=== PATIENT | female | born 1980 | race Caucasian/White ===

== ENCOUNTER 2018-11-09 19:16 | Emergency (ER) | payer MEDICAID | END 2018-11-09 20:39 | disposition left against medical advice (07) | LOC: ER 19:16 | DX: R10.9 Unspecified abdominal pain (principal); Z53.21 Procedure and treatment not carried out due to patient leaving prior to being seen by health care provider ==

== ENCOUNTER 2018-11-10 19:01 | Emergency (ER) | payer MEDICAID ==
[~2018-11-10] VITALS: Ht 162.6 cm; Wt 95.5 kg
[2018-11-10 19:42] LABS: URINE HCG NEGATIVE (NEG)
[2018-11-10 19:47] LABS: CLARITY,URINE SLIGHTLY CLOUDY (Clear); COLOR,URINE YELLOW (Yellow); GLUCOSE, URINE NEGATIVE (Neg); KETONES,URINE TRACE mg/dl (Neg); LEUKOCYTE ESTERASE ,URINE NEGATIVE (Neg); NITRITES, URINE NEGATIVE (Neg); OCCULT BLOOD,URINE NEGATIVE (Neg); PROTEIN,URINE NEGATIVE (Neg); UROBILINOGEN,URINE 0.2 E.U/dL (0.2-1.0)
[2018-11-10 19:49] LABS: BASOPHILS # (AUTO) 0.1 X10'3 (0-0.2); BASOPHILS % (AUTO) 0.9 % (0-1); EOSINOPHILS # (AUTO) 0.2 X10'3 (0-0.9); EOSINOPHILS % (AUTO) 1.3 % (0-6); HEMATOCRIT 41.4 % (35.0-45.0); HEMOGLOBIN 13.5 g/dl (12.0-16.0); LYMPHOCYTES # (AUTO) 4.1 X10'3 (1.1-4.8); LYMPHOCYTES % (AUTO) 34.1 % (21-51); MEAN CORPUSCULAR HEMOGLOBIN 26.1 PG (27.0-31.0); MEAN CORPUSCULAR HGB CONC 32.6 g/dL (33.0-36.5); MEAN CORPUSCULAR VOLUME 80.1 FL (78-98); MEAN PLATELET VOLUME 8.3 FL (7.4-10.4); NEUTROPHILS # (AUTO) 6.7 X10'3 (1.8-7.7); NEUTROPHILS % (AUTO) 55.7 % (42-75); PLATELET COUNT 418 X10'3 (140-440); PROTHROMBIN TIME 9.7 SECONDS (9.0-12.0); RED BLOOD COUNT 5.17 X10'6 (4.20-5.60); RED CELL DISTRIBUTION WIDTH 16.6 % (11.5-14.5)
[2018-11-10 19:52] LABS: ALANINE AMINOTRANSFERASE 23 U/L (12-78); ALBUMIN 3.5 G/DL (3.4-5.0); ALKALINE PHOSPHATASE 61 IU/L (46-116); ANION GAP 8 (8-16); ASPARTATE AMINO TRANSFERASE 13 U/L (10-37); BILIRUBIN,TOTAL 0.1 MG/DL (0.1-1.0); BLOOD UREA NITROGEN 7 MG/DL (7-18); BUN/CREATININE RATIO 8.2 (6.6-38.0); CHLORIDE 105 MMOL/L (99-107); CREATININE 0.85 MG/DL (0.40-0.90); GLUCOSE 96 MG/DL (70-104); POTASSIUM 3.9 MMOL/L (3.5-5.1); SODIUM 141 MMOL/L (135-145); TOTAL CARBON DIOXIDE 27.8 MMOL/L (24-32); TOTAL PROTEIN 6.9 G/DL (6.4-8.2); eGFR 74 ML/MIN
[2018-11-10 19:59] LABS: UA COLLECTION TYPE CLN CATCH MIDSTREAM
[2018-11-10 20:01] LABS: BACTERIA,URINE FEW /HPF (Neg); RBC,URINE NONE SEEN /HPF (0-2); WBC,URINE 0-4 /HPF (0-4)
[2018-11-10 20:02] LABS: MUCUS STRANDS MANY /LPF (Neg); SQUAMOUS EPITHELIAL CELL,UR MANY /LPF (FEW)
[2018-11-10] MEDS ORDERED: HYDROcodone/acetaminophen 5mg/325mg tablet PO ONE (20:40)
[2018-11-10 21:59] VITALS: BP 141/85
== END 2018-11-10 22:01 | disposition home or self-care (01) ==
LOC: ER 19:02
DX: R10.32 Left lower quadrant pain (principal)
CPT/HCPCS: 36415; 74176; 80053; 81001; 81025; 85025; 85610; 99284

== ENCOUNTER 2018-12-11 23:13 | Emergency (ER) | payer MEDICAID ==
[~2018-12-11] VITALS: Ht 165.1 cm; Wt 84.0 kg
[2018-12-12 00:56] VITALS: BP 116/75
== END 2018-12-12 01:04 | disposition home or self-care (01) ==
LOC: ER 23:13
DX: O26.891 Other specified pregnancy related conditions, first trimester (principal); S52.122A Displaced fracture of head of left radius, initial encounter for closed fracture; S62.002A Unspecified fracture of navicular [scaphoid] bone of left wrist, initial encounter for closed fracture; Z3A.01 Less than 8 weeks gestation of pregnancy; W18.39XA Other fall on same level, initial encounter; Y93.89 Activity, other specified; Y92.89 Other specified places as the place of occurrence of the external cause; Y99.8 Other external cause status
CPT/HCPCS: 29105; 29125; 73080; 73110; 99283

== ENCOUNTER 2021-05-06 10:08 | Emergency (ER) | payer MEDICAID ==
[~2021-05-06] VITALS: Ht 165.1 cm; Wt 100.0 kg
[~2021-05-06 10:08] MED LIST: ACIDOPHILUS100 MG PO; DIPH-423 PO; ESOM20CA PO; IBUP-1985 PO; POLOS EACHEYE; TRIA15CR61 TP; VENL150C2 PO
[2021-05-06] MEDS ORDERED: acetaminophen 325mg tablet PO ONE (12:30)
[2021-05-06] MEDS ORDERED: aspirin 81mg tab.chew PO ONE (12:30)
[2021-05-06] MEDS ORDERED: HYDROcodone/acetaminophen 5mg/325mg tablet PO ONE (13:45)
[2021-05-06 13:56] LABS: BASOPHILS # (AUTO) 0.1 X10'3 (0-0.2); BASOPHILS % (AUTO) 0.5 % (0-1); EOSINOPHILS # (AUTO) 0.1 X10'3 (0-0.9); EOSINOPHILS % (AUTO) 0.5 % (0-6); HEMATOCRIT 41.3 % (35.0-45.0); HEMOGLOBIN 13.7 g/dl (12.0-16.0); LYMPHOCYTES # (AUTO) 7.4 X10'3 (1.1-4.8); MEAN CORPUSCULAR HEMOGLOBIN 27.8 PG (27.0-31.0); MEAN CORPUSCULAR HGB CONC 33.2 g/dL (33.0-36.5); MEAN CORPUSCULAR VOLUME 83.6 FL (78-98); MEAN PLATELET VOLUME 8.3 FL (7.4-10.4); MONOCYTES # (AUTO) 0.9 X10'3 (0-0.9); MONOCYTES % (AUTO) 5.7 % (2-12); NEUTROPHILS % (AUTO) 45.3 % (42-75); PLATELET COUNT 368 X10'3 (140-440); RED BLOOD COUNT 4.93 X10'6 (4.20-5.60); RED CELL DISTRIBUTION WIDTH 14.6 % (11.5-14.5); WHITE BLOOD COUNT 15.4 X10'3 (4.5-11.0)
[2021-05-06 14:00] LABS: ALANINE AMINOTRANSFERASE 20 U/L (12-78); ALBUMIN 3.2 G/DL (3.4-5.0); ALBUMIN/GLOBULIN RATIO 0.9 (1.1-1.5); ALKALINE PHOSPHATASE 58 IU/L (46-116); ANION GAP 8 (8-16); ASPARTATE AMINO TRANSFERASE 15 U/L (10-37); BILIRUBIN,TOTAL 0.2 MG/DL (0.1-1.0); BLOOD UREA NITROGEN 19 MG/DL (7-18); BUN/CREATININE RATIO 20.4 (6.6-38.0); CALCIUM 8.7 MG/DL (8.5-10.1); CHLORIDE 102 MMOL/L (99-107); CREATININE 0.93 MG/DL (0.40-0.90); GLUCOSE 93 MG/DL (70-104); POTASSIUM 3.4 MMOL/L (3.5-5.1); SODIUM 135 MMOL/L (135-145); TOTAL CARBON DIOXIDE 25.3 MMOL/L (24-32); TOTAL PROTEIN 6.8 G/DL (6.4-8.2); eGFR 66 ML/MIN
[2021-05-06 14:05] LABS: D-DIMER < 0.19 MG/L FEU (0-0.50); PARTIAL THROMBOPLASTIN TIME 21 SECONDS (22-32)
[2021-05-06 14:10] LABS: MAGNESIUM 2.3 MG/DL (1.5-2.4)
[2021-05-06 14:22] LABS: URINE HCG NEGATIVE (NEG)
[2021-05-06 14:34] LABS: CLARITY,URINE SLIGHTLY CLOUDY (Clear); COLOR,URINE YELLOW (Yellow); UA COLLECTION TYPE CLN CATCH MIDSTREAM
[2021-05-06 14:35] LABS: GLUCOSE, URINE NEGATIVE (Neg); KETONES,URINE NEGATIVE (Neg); LEUKOCYTE ESTERASE ,URINE TRACE (Neg); NITRITES, URINE NEGATIVE (Neg); OCCULT BLOOD,URINE NEGATIVE (Neg); PROTEIN,URINE NEGATIVE (Neg); UROBILINOGEN,URINE 0.2 E.U/dL (0.2-1.0)
[2021-05-06 14:37] LABS: BACTERIA,URINE 2+ /HPF (Neg); HYALINE CASTS 0-3 /LPF (NEGATIVE); MUCUS STRANDS NONE SEEN /LPF (Neg); RBC,URINE 0-2 /HPF (0-2); SQUAMOUS EPITHELIAL CELL,UR MODERATE /LPF (FEW)
[2021-05-06] MEDS ORDERED: FLUC150T66 PO (14:53)
[2021-05-06] MEDS ORDERED: AZIT-72 PO (14:53)
[2021-05-06 15:01] VITALS: BP 113/98
== END 2021-05-06 15:03 | disposition home or self-care (01) ==
LOC: ER 10:08
DX: J18.9 Pneumonia, unspecified organism (principal); Z20.822 Contact with and (suspected) exposure to COVID-19; R07.89 Other chest pain; R06.02 Shortness of breath; R53.1 Weakness; Z79.2 Long term (current) use of antibiotics; Z79.899 Other long term (current) drug therapy
CPT/HCPCS: 36415; 71045; 80053; 81001; 81025; 83735; 83880; 84484; 85025; 85379; 85610; 85730; 87635; 93005; 99285; C9803

== ENCOUNTER 2021-06-04 13:18 | Emergency (ER) | payer MEDICAID ==
[~2021-06-04] VITALS: Ht 165.1 cm; Wt 105.9 kg
[~2021-06-04 13:18] MED LIST changes: +FLUC150T66 PO
[2021-06-04] MEDS ORDERED: ondansetron 4mg rapidly disintigrating tab PO ONE (15:15)
[2021-06-04] MEDS ORDERED: morphine 4 MG/ML inj SYRINge IM ONE (15:15)
[2021-06-04 15:44] LABS: BASOPHILS # (AUTO) 0.1 X10'3 (0-0.2); BASOPHILS % (AUTO) 0.6 % (0-1); EOSINOPHILS # (AUTO) 0.1 X10'3 (0-0.9); EOSINOPHILS % (AUTO) 0.9 % (0-6); HEMATOCRIT 39.8 % (35.0-45.0); HEMOGLOBIN 13.3 g/dl (12.0-16.0); LYMPHOCYTES # (AUTO) 3.7 X10'3 (1.1-4.8); LYMPHOCYTES % (AUTO) 34.2 % (21-51); MEAN CORPUSCULAR HEMOGLOBIN 27.6 PG (27.0-31.0); MEAN CORPUSCULAR HGB CONC 33.4 g/dL (33.0-36.5); MEAN CORPUSCULAR VOLUME 82.8 FL (78-98); MEAN PLATELET VOLUME 8.5 FL (7.4-10.4); MONOCYTES # (AUTO) 0.7 X10'3 (0-0.9); MONOCYTES % (AUTO) 6.4 % (2-12); NEUTROPHILS # (AUTO) 6.3 X10'3 (1.8-7.7); NEUTROPHILS % (AUTO) 57.9 % (42-75); PLATELET COUNT 329 X10'3 (140-440); RED CELL DISTRIBUTION WIDTH 14.5 % (11.5-14.5); WHITE BLOOD COUNT 10.9 X10'3 (4.5-11.0)
[2021-06-04 15:57] LABS: ALANINE AMINOTRANSFERASE 18 U/L (12-78); ALBUMIN 2.9 G/DL (3.4-5.0); ALBUMIN/GLOBULIN RATIO 0.7 (1.1-1.5); ALKALINE PHOSPHATASE 55 IU/L (46-116); ANION GAP 15 (8-16); ASPARTATE AMINO TRANSFERASE 19 U/L (10-37); BILIRUBIN,TOTAL 0.2 MG/DL (0.1-1.0); BLOOD UREA NITROGEN 14 MG/DL (7-18); BUN/CREATININE RATIO 15.9 (6.6-38.0); CALCIUM 8.7 MG/DL (8.5-10.1); CHLORIDE 105 MMOL/L (99-107); CREATININE 0.88 MG/DL (0.40-0.90); SODIUM 140 MMOL/L (135-145); eGFR 70 ML/MIN
[2021-06-04 15:58] LABS: LIPASE 104 U/L (73-393)
[2021-06-04 15:59] LABS: BILIRUBIN,DIRECT < 0.1 MG/DL (0-0.3); GLUCOSE 163 MG/DL (70-104)
[2021-06-04 18:00] LABS: HCG SERUM QL NEGATIVE
[2021-06-04 20:52] VITALS: BP 154/98
[2021-06-04] MEDS ORDERED: HYDROcodone/acetaminophen 5mg/325mg tablet PO ONE (21:05)
[2021-06-04 21:06] LABS: CLARITY,URINE CLOUDY (Clear); COLOR,URINE YELLOW (Yellow); GLUCOSE, URINE NEGATIVE (Neg); KETONES,URINE NEGATIVE (Neg); LEUKOCYTE ESTERASE ,URINE SMALL (Neg); NITRITES, URINE NEGATIVE (Neg); OCCULT BLOOD,URINE TRACE-LYSED (Neg); PROTEIN,URINE NEGATIVE (Neg); UA COLLECTION TYPE CLN CATCH MIDSTREAM; UROBILINOGEN,URINE 0.2 E.U/dL (0.2-1.0)
[2021-06-04 21:09] LABS: BACTERIA,URINE 4+ /HPF (Neg); MUCUS STRANDS MANY /LPF (Neg); RBC,URINE 0-2 /HPF (0-2); SQUAMOUS EPITHELIAL CELL,UR MANY /LPF (FEW)
== END 2021-06-04 21:22 | disposition home or self-care (01) ==
LOC: ER 13:18
DX: R10.13 Epigastric pain (principal); R13.10 Dysphagia, unspecified; R06.2 Wheezing; M79.7 Fibromyalgia; Z79.899 Other long term (current) drug therapy; Z79.2 Long term (current) use of antibiotics
CPT/HCPCS: 36415; 71045; 74176; 80048; 80076; 81001; 83690; 84484; 84703; 85025; 93005; 99285

== ENCOUNTER 2021-08-21 04:28 | Emergency (ER) | payer OTHER, MEDICAID ==
[~2021-08-21] VITALS: Ht 165.1 cm; Wt 104.0 kg
[~2021-08-21 04:28] MED LIST changes: -FLUC150T66 PO
[2021-08-21] MEDS ORDERED: normal saline 1000ML IV soln IVB ONE ×3 (05:55→06:20)
[2021-08-21] MEDS ORDERED: pantoprazole 40MG/NS 100ML BAG 100 ML IV ONE (05:55)
[2021-08-21] MEDS ORDERED: ondansetron/PF 4mg/2ml inj IV ONE (05:55)
[2021-08-21] MEDS ORDERED: morphine 2 MG/ML inj. syringe IV ONE (06:20)
[2021-08-21] MEDS ORDERED: ketorolac trometh. 30mg/ml inj. IV ONE (06:20)
[2021-08-21] MEDS ORDERED: metoclopramide 5 mg/ml inj IV ONE (06:20)
[2021-08-21] MEDS ORDERED: diphenhydrAMINE 50 mg/ml inj IV ONE (06:20)
[2021-08-21 08:27] LABS: BASOPHILS % (AUTO) 0.2 % (0-1); EOSINOPHILS % (AUTO) 0 % (0-6); HEMATOCRIT 37.6 % (35.0-45.0); HEMOGLOBIN 12.4 g/dl (12.0-16.0); LYMPHOCYTES # (AUTO) 1.3 X10'3 (1.1-4.8); LYMPHOCYTES % (AUTO) 21.6 % (21-51); MEAN CORPUSCULAR HEMOGLOBIN 26.6 PG (27.0-31.0); MEAN CORPUSCULAR HGB CONC 32.9 g/dL (33.0-36.5); MEAN CORPUSCULAR VOLUME 80.6 FL (78-98); MEAN PLATELET VOLUME 8.3 FL (7.4-10.4); MONOCYTES # (AUTO) 0.2 X10'3 (0-0.9); MONOCYTES % (AUTO) 3.9 % (2-12); NEUTROPHILS # (AUTO) 4.5 X10'3 (1.8-7.7); NEUTROPHILS % (AUTO) 74.3 % (42-75); PLATELET COUNT 240 X10'3 (140-440); RED BLOOD COUNT 4.66 X10'6 (4.20-5.60); RED CELL DISTRIBUTION WIDTH 14.3 % (11.5-14.5)
[2021-08-21 08:50] LABS: ALANINE AMINOTRANSFERASE 69 U/L (12-78); ALBUMIN 2.6 G/DL (3.4-5.0); ALBUMIN/GLOBULIN RATIO 0.6 (1.1-1.5); ALKALINE PHOSPHATASE 54 IU/L (46-116); ANION GAP 11 (8-16); ASPARTATE AMINO TRANSFERASE 113 U/L (10-37); BILIRUBIN,TOTAL 0.2 MG/DL (0.1-1.0); BLOOD UREA NITROGEN 9 MG/DL (7-18); BUN/CREATININE RATIO 11.3 (6.6-38.0); CALCIUM 7.9 MG/DL (8.5-10.1); CHLORIDE 102 MMOL/L (99-107); GLUCOSE 152 MG/DL (70-104); LIPASE 140 U/L (73-393); POTASSIUM 4.2 MMOL/L (3.5-5.1); SODIUM 136 MMOL/L (135-145); TOTAL CARBON DIOXIDE 22.6 MMOL/L (24-32); TOTAL PROTEIN 6.9 G/DL (6.4-8.2); eGFR 79 ML/MIN
[2021-08-21 10:59] VITALS: BP 114/61
== END 2021-08-21 11:02 | disposition home or self-care (01) ==
LOC: ER 04:28
DX: U07.1 COVID-19 (principal); R11.2 Nausea with vomiting, unspecified; M79.7 Fibromyalgia
CPT/HCPCS: 36415; 71045; 80053; 83690; 85025; 96361; 96374; 96375; 99284; C9113; J1200; J1885; J2270; J2405; J2765; J7030

== ENCOUNTER 2021-08-22 17:21 | Inpatient (IN) | payer OTHER, MEDICAID ==
[~2021-08-22] VITALS: Ht 154.9 cm; Wt 104.5 kg
[2021-08-22 18:18] LABS: ALANINE AMINOTRANSFERASE 57 U/L (12-78); ALBUMIN 2.4 G/DL (3.4-5.0); ALBUMIN/GLOBULIN RATIO 0.6 (1.1-1.5); ALKALINE PHOSPHATASE 59 IU/L (46-116); ANION GAP 13 (8-16); ASPARTATE AMINO TRANSFERASE 104 U/L (10-37); BILIRUBIN,TOTAL 0.3 MG/DL (0.1-1.0); BLOOD UREA NITROGEN 6 MG/DL (7-18); BUN/CREATININE RATIO 7.2 (6.6-38.0); CALCIUM 8.3 MG/DL (8.5-10.1); CHLORIDE 101 MMOL/L (99-107); CREATININE 0.83 MG/DL (0.40-0.90); GLUCOSE 183 MG/DL (70-104); POTASSIUM 4.5 MMOL/L (3.5-5.1); SODIUM 138 MMOL/L (135-145); TOTAL CARBON DIOXIDE 24.3 MMOL/L (24-32); TOTAL PROTEIN 6.5 G/DL (6.4-8.2); eGFR 75 ML/MIN
[2021-08-22 18:21] LABS: BASOPHILS % (AUTO) 0.2 % (0-1); EOSINOPHILS % (AUTO) 0 % (0-6); HEMATOCRIT 36.4 % (35.0-45.0); HEMOGLOBIN 11.9 g/dl (12.0-16.0); LYMPHOCYTES # (AUTO) 1.5 X10'3 (1.1-4.8); LYMPHOCYTES % (AUTO) 18.6 % (21-51); MEAN CORPUSCULAR HEMOGLOBIN 26.2 PG (27.0-31.0); MEAN CORPUSCULAR HGB CONC 32.6 g/dL (33.0-36.5); MEAN CORPUSCULAR VOLUME 80.3 FL (78-98); MEAN PLATELET VOLUME 7.9 FL (7.4-10.4); MONOCYTES # (AUTO) 0.3 X10'3 (0-0.9); MONOCYTES % (AUTO) 3.8 % (2-12); NEUTROPHILS # (AUTO) 6.3 X10'3 (1.8-7.7); NEUTROPHILS % (AUTO) 77.4 % (42-75); PLATELET COUNT 311 X10'3 (140-440); RED BLOOD COUNT 4.54 X10'6 (4.20-5.60); RED CELL DISTRIBUTION WIDTH 14.4 % (11.5-14.5); WHITE BLOOD COUNT 8.1 X10'3 (4.5-11.0)
[2021-08-22] MEDS ORDERED: temazepam 15mg capsule PO PRN (21:00)
[2021-08-22] MEDS ORDERED: iohexol 350MG/ML 100ml bottle IV ONE (21:11)
[2021-08-22 21:25] LABS: C-REACTIVE PROTEIN 18.15 MG/DL (0.0-0.5)
[2021-08-22] MEDS ORDERED: enoxaparin 100mg/ml syringe SUBCUT ONE (21:45)
[2021-08-22] MEDS ORDERED: ondansetron/PF 4mg/2ml inj IV ONE (22:00)
[2021-08-22] MEDS ORDERED: morphine 2 MG/ML inj. syringe IV ONE (22:15)
[2021-08-22] MEDS ORDERED: dexamethasone inj 8 MG in normal saline 50ml IV soln 50 ML IV STA (23:11)
[2021-08-22] MEDS ORDERED: REMDESIVIR INJ 200 MG in normal saline 100ml IV soln 60 ML IV ONE (23:15)
[2021-08-22] MEDS ORDERED: dexamethasone sod phosphate 10mg/ml inj IV STA (23:15)
[2021-08-22] MEDS ORDERED: mag hydrox/Alum hydrox/simeth 30ml oral suspension PO PRN (23:40)
[2021-08-22] MEDS ORDERED: bisacodyl 10mg suppository rectal RC PRN (23:40)
[2021-08-22] MEDS ORDERED: morphine 2 MG/ML inj. syringe IV PRN (23:40)
[2021-08-22] MEDS ORDERED: diphenhydrAMINE 50 mg/ml inj IV PRN (23:40)
[2021-08-22] MEDS ORDERED: diphenhydrAMINE 25mg capsule PO PRN (23:40)
[2021-08-22] MEDS ORDERED: acetaminophen 325mg tablet PO PRN (23:40)
[2021-08-22] MEDS ORDERED: HYDROmorphone inj. 0.5 MG/0.5 ML DISP.SYRIN IV PRN (23:40)
[2021-08-22] MEDS ORDERED: magnesium hydroxide 30ml (MOM) UD suspension PO PRN (23:40)
[2021-08-22] MEDS ORDERED: acetaminophen 650mg rectal suppository RC PRN (23:40)
[2021-08-22] MEDS ORDERED: metoclopramide 5 mg/ml inj IV PRN (23:40)
[2021-08-22] MEDS ORDERED: ondansetron 4mg rapidly disintigrating tab PO PRN (23:40)
[2021-08-22] MEDS ORDERED: HYDROcodone/acetaminophen 5mg/325mg tablet PO PRN (23:40)
[2021-08-23 00:18] LABS: PHOSPHORUS 3.1 MG/DL (2.3-4.5)
[2021-08-23] MEDS: normal saline 1000ml 1,000 ML IV SCH ×3 (00:56→20:25)
[2021-08-23 03:21] LABS: BASOPHILS % (AUTO) 0.2 % (0-1); EOSINOPHILS % (AUTO) 0 % (0-6); HEMATOCRIT 33.2 % (35.0-45.0); HEMOGLOBIN 11.2 g/dl (12.0-16.0); LYMPHOCYTES % (AUTO) 13.3 % (21-51); MEAN CORPUSCULAR HEMOGLOBIN 26.8 PG (27.0-31.0); MEAN CORPUSCULAR HGB CONC 33.7 g/dL (33.0-36.5); MEAN CORPUSCULAR VOLUME 79.7 FL (78-98); MEAN PLATELET VOLUME 7.5 FL (7.4-10.4); MONOCYTES # (AUTO) 0.3 X10'3 (0-0.9); MONOCYTES % (AUTO) 3.8 % (2-12); NEUTROPHILS # (AUTO) 6.4 X10'3 (1.8-7.7); NEUTROPHILS % (AUTO) 82.7 % (42-75); PLATELET COUNT 340 X10'3 (140-440); RED BLOOD COUNT 4.17 X10'6 (4.20-5.60); RED CELL DISTRIBUTION WIDTH 14.4 % (11.5-14.5); WHITE BLOOD COUNT 7.8 X10'3 (4.5-11.0)
[2021-08-23 03:34] LABS: APTT 36 SECONDS (22-32)
[2021-08-23 03:35] LABS: ALANINE AMINOTRANSFERASE 51 U/L (12-78); ALBUMIN 2.2 G/DL (3.4-5.0); ALBUMIN/GLOBULIN RATIO 0.5 (1.1-1.5); ALKALINE PHOSPHATASE 55 IU/L (46-116); ANION GAP 13 (8-16); ASPARTATE AMINO TRANSFERASE 75 U/L (10-37); BILIRUBIN,TOTAL 0.3 MG/DL (0.1-1.0); BLOOD UREA NITROGEN 6 MG/DL (7-18); BUN/CREATININE RATIO 6.7 (6.6-38.0); CALCIUM 7.9 MG/DL (8.5-10.1); CHLORIDE 103 MMOL/L (99-107); CREATININE 0.89 MG/DL (0.40-0.90); GLUCOSE 254 MG/DL (70-104); POTASSIUM 4.3 MMOL/L (3.5-5.1); SODIUM 137 MMOL/L (135-145); TOTAL CARBON DIOXIDE 21.5 MMOL/L (24-32); TOTAL PROTEIN 6.4 G/DL (6.4-8.2); eGFR 70 ML/MIN
[2021-08-23 03:38] LABS: CHOL/HDL RATIO 2.1 (0.00-4.99); CHOLESTEROL 85 MG/DL (0-200); HDL CHOLESTEROL 40 MG/DL (35-60); LDL CHOLESTEROL 20 MG/DL (50-100); TRIGLYCERIDES 213 MG/DL (20-135)
[2021-08-23] MEDS ORDERED: MESSAGE TO PHARMACY PO ONE (04:45)
[2021-08-23] MEDS ORDERED: dextrose 50%-water 50ml dispensing syringe IV PRN ×2 (04:45)
[2021-08-23] MEDS ORDERED: dextrose ORAL solution 15 GM/59 ML bottle PO PRN ×2 (04:45)
[2021-08-23] MEDS ORDERED: glucagon, human recombinant 1mg kit SUBCUT PRN (04:45)
[2021-08-23] MEDS: ondansetron/PF 4mg/2ml inj IV PRN ×2 (06:00→13:25)
[2021-08-23] MEDS: morphine 2 MG/ML inj. syringe IV PRN ×2 (06:00→17:21)
[2021-08-23] MEDS ORDERED: pantoprazole 40mg Tablet.DR PO SCH (07:30)
[2021-08-23] MEDS: CefTRIAXone/D5W-Rocephin 1gm 50 ML IV SCH (07:54)
[2021-08-23] MEDS: azithromycin/NS 500mg/250ml 250 ML IV SCH (07:54)
[2021-08-23] MEDS: enoxaparin 40mg/0.4ml syringe SUBCUT SCH ×2 (07:55→20:23)
[2021-08-23] MEDS: aspirin 81mg tab.chew PO SCH (07:55)
[2021-08-23] MEDS: docusate sod 100mg capsule PO SCH ×2 (08:00→20:00)
[2021-08-23] MEDS ORDERED: DULO-31 PO (08:19)
--- NOTE | 2021-08-23 08:53 | NUR ---
paged Dr. Toure regarding troponin 640 and also requested prnallely andersen per pt request.
[2021-08-23] MEDS ORDERED: ALBUTEROL INHALER 1 PUFF/90 MCG INHALER IH PRN (09:10)
--- NOTE | 2021-08-23 09:31 | NUR ---
DEXAMETASONE ON D5 NOT AVAILABLE,PHARMACY IS STILL MAKING IT PER CASANDRA.
[2021-08-23] MEDS: HYDROcodone/acetaminophen 10/325mg tab PO PRN ×2 (09:39→20:24)
[2021-08-23] MEDS: insulin Lispro (HumaLOG) vial - multi-dose SQ SCH ×2 (09:42→13:31)
[2021-08-23 09:56] LABS: C-REACTIVE PROTEIN 18.77 MG/DL (0.0-0.5); LACTATE DEHYDROGENASE 859 U/L (81-234)
[2021-08-23] MEDS: REMDESIVIR INJ 100 MG in normal saline 100ml IV soln 100 ML IV SCH (10:56)
[2021-08-23] MEDS ORDERED: GABA300C PO (11:39)
[2021-08-23] MEDS ORDERED: VENL50TA4 PO (11:39)
[2021-08-23] MEDS ORDERED: HYDR-3972 PO (11:39)
[2021-08-23] MEDS ORDERED: PANT20TA18 PO (11:39)
[2021-08-23] MEDS ORDERED: ETHI1TAB18 PO (11:39)
[2021-08-23] MEDS: dexamethasone inj 6 MG in dextrose 5%-water 100 ML IV SCH ×2 (11:58→20:24)
[2021-08-23 12:00] LABS: D-DIMER 0.96 MG/L FEU (0-0.50)
--- NOTE | 2021-08-23 13:47 | NUR ---
patient's saturation from 92%-95% on a 6L nc.call light within reach.
--- NOTE | 2021-08-23 13:49 | NUR ---
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
[2021-08-23] MEDS: ALBUTEROL INHALER 1 PUFF/90 MCG INHALER IH SCH ×2 (14:00→20:25)
[2021-08-23] MEDS ORDERED: HYDROcodone/acetaminophen 10/325mg tab PO PRN (17:25)
--- NOTE | 2021-08-23 17:40 | NUR ---
patient's beddings changed, sob with exertion.Call light within reach,medicated with morphine 2mg for generalized pain.tolerating Hi flow.
--- NOTE | 2021-08-23 18:31 | NUR ---
ASSISTING NURSE WITH PT CARE, [facility] REC UP DATED WITH PT, SHE STATED SHE IS NO LONGER TAKING GABAPENTIN OR VENLAFAXINE, SENT PAGE TO DR STANFORD
--- NOTE | 2021-08-23 19:01 | NUR ---
Patient in room ED 4. I have received report from Samantha OLSON and had the opportunity to ask questions and assume patient care.
[2021-08-23 19:30] VITALS: BP 122/78
[2021-08-23] MEDS: duloxetine 30mg CAPSULE.DR PO SCH (20:23)
[2021-08-23] MEDS: lactobacillus rhamnosus 10,000 MMU CELLS/CAPSULE PO SCH (20:23)
[2021-08-23] MEDS: pantoprazole 40mg Tablet.DR PO SCH (20:27)
[2021-08-23] MEDS ORDERED: gabapentin 300mg capsule PO SCH (21:00)
--- NOTE | 2021-08-23 21:18 | NUR ---
Called MD about pts blood sugar. At HS it was 188. Pt dose not qualify for humalog correction per protocol. MD is aware, he dose not want the pt to have Lantus. Will continue to monitor.
[2021-08-23 22:00] VITALS: BP 99/48
[2021-08-24 02:00] VITALS: BP 112/68
[2021-08-24] MEDS: ALBUTEROL INHALER 1 PUFF/90 MCG INHALER IH SCH ×4 (02:33→20:07)
[2021-08-24] MEDS: HYDROcodone/acetaminophen 10/325mg tab PO PRN ×2 (02:48→13:12)
[2021-08-24] MEDS: normal saline 1000ml 1,000 ML IV SCH (05:42)
[2021-08-24 06:00] VITALS: BP 112/56
--- NOTE | 2021-08-24 06:22 | NUR ---
Problems reprioritized. Patient report given, questions answered & plan of care reviewed with Tristin OLSON.
[2021-08-24] MEDS: enoxaparin 40mg/0.4ml syringe SUBCUT SCH (07:31)
[2021-08-24] MEDS: CefTRIAXone/D5W-Rocephin 1gm 50 ML IV SCH (07:31)
[2021-08-24] MEDS: aspirin 81mg tab.chew PO SCH (07:31)
[2021-08-24] MEDS: dexamethasone inj 6 MG in dextrose 5%-water 100 ML IV SCH ×2 (07:31→20:33)
[2021-08-24] MEDS: azithromycin/NS 500mg/250ml 250 ML IV SCH (07:31)
[2021-08-24] MEDS: pantoprazole 40mg Tablet.DR PO SCH ×2 (07:31→20:33)
[2021-08-24] MEDS: docusate sod 100mg capsule PO SCH ×3 (07:32→20:33)
[2021-08-24] MEDS: lactobacillus rhamnosus 10,000 MMU CELLS/CAPSULE PO SCH ×2 (07:32→20:33)
[2021-08-24] MEDS: Ethinyl Estradiol/Drospirenone (Loryna 3 mg-0.02 mg Tablet) PO SCH (07:32)
[2021-08-24] MEDS ORDERED: venlafaxine XR 75mg capsule (Q24H) PO SCH (08:00)
[2021-08-24] MEDS: REMDESIVIR INJ 100 MG in normal saline 100ml IV soln 100 ML IV SCH (08:40)
[2021-08-24 09:02] LABS: BASOPHILS % (AUTO) 0.5 % (0-1); EOSINOPHILS % (AUTO) 0 % (0-6); HEMATOCRIT 35.9 % (35.0-45.0); HEMOGLOBIN 11.7 g/dl (12.0-16.0); LYMPHOCYTES % (AUTO) 12.8 % (21-51); MEAN CORPUSCULAR HEMOGLOBIN 26.2 PG (27.0-31.0); MEAN CORPUSCULAR HGB CONC 32.4 g/dL (33.0-36.5); MEAN CORPUSCULAR VOLUME 80.9 FL (78-98); MEAN PLATELET VOLUME 8.1 FL (7.4-10.4); MONOCYTES # (AUTO) 0.7 X10'3 (0-0.9); MONOCYTES % (AUTO) 8.6 % (2-12); NEUTROPHILS # (AUTO) 5.9 X10'3 (1.8-7.7); NEUTROPHILS % (AUTO) 78.1 % (42-75); PLATELET COUNT 460 X10'3 (140-440); RED BLOOD COUNT 4.45 X10'6 (4.20-5.60); RED CELL DISTRIBUTION WIDTH 14.5 % (11.5-14.5); WHITE BLOOD COUNT 7.6 X10'3 (4.5-11.0)
[2021-08-24] MEDS: insulin Lispro (HumaLOG) vial - multi-dose SQ SCH ×2 (09:04→13:05)
[2021-08-24 09:08] LABS: D-DIMER 1.22 MG/L FEU (0-0.50)
[2021-08-24] MEDS: morphine 2 MG/ML inj. syringe IV PRN (09:12)
[2021-08-24 09:34] LABS: ALANINE AMINOTRANSFERASE 36 U/L (12-78); ALBUMIN/GLOBULIN RATIO 0.5 (1.1-1.5); ALKALINE PHOSPHATASE 61 IU/L (46-116); ANION GAP 13 (8-16); ASPARTATE AMINO TRANSFERASE 62 U/L (10-37); BILIRUBIN,TOTAL 0.2 MG/DL (0.1-1.0); BLOOD UREA NITROGEN 13 MG/DL (7-18); BUN/CREATININE RATIO 18.1 (6.6-38.0); C-REACTIVE PROTEIN 8.95 MG/DL (0.0-0.5); CALCIUM 8.3 MG/DL (8.5-10.1); CHLORIDE 108 MMOL/L (99-107); CREATININE 0.72 MG/DL (0.40-0.90); GLUCOSE 234 MG/DL (70-104); LACTATE DEHYDROGENASE 706 U/L (81-234); POTASSIUM 4.2 MMOL/L (3.5-5.1); SODIUM 143 MMOL/L (135-145); TOTAL CARBON DIOXIDE 21.7 MMOL/L (24-32); TOTAL PROTEIN 6.2 G/DL (6.4-8.2); eGFR 89 ML/MIN
[2021-08-24] MEDS: CefTRIAXone 2gm/D5W 50ml BAG 50 ML IV SCH (10:19)
[2021-08-24 11:00] VITALS: BP 102/72
[2021-08-24] MEDS ORDERED: TOCILIZUMAB 80MG/4 ML INJ. 800 MG in normal saline 100ml IV soln 60 ML IV ONE (11:00)
[2021-08-24 14:00] VITALS: BP 125/82
--- NOTE | 2021-08-24 14:26 | NUR ---
DM Consult: Pt admit DX COVID-19, pneumonitis, acute respiratory failure, type II MT, and new onset T2DM A1C 8.0% per EMR. RD unable to reach RN via TC but was able to leave message to see if pt made aware of new DM DX this admit by MD; unsure at this time. RD also left message for RN regarding long-acting Glu coverage if MD agreeable given Glu 234-238 this admit only receiving humalog also on dexamethasone/D5W per EMR. Pt only 15 L HFNC w/ PO improved to 38% second carb controlled meal this AM up from 12.5% dinner last night. Will monitor further PO trends for ONS needs given only two documented meals received so far this admit. LBM 08/23 w/ diarrhea noted per EMR receiving routine colace. Will continue to monitor. Rec: 1. continue carb controlled diet; ecourage PO 2. monitor for ONS needs pending further PO trends 3. bowel care per rx; consider holding cathartic if diarrhea persists 4. scaled wt this admit; subsequent weekly wts 5. Consider basal Glu coverage per physician discretion; Glu 234-238 on steroid w/ only humalog for coverage 6. DM ed this admit prior to discharge once pt made aware of new DM DX by physician; A1C 8.0% and no PMH DM Addendum: 08/24/21 at [address] Amended: Links added.
--- NOTE | 2021-08-24 16:57 | NUR ---
PAGER ID: [phone] MESSAGE: [phone] Antonino: Patient having very bad anxiety / panic attack. Can we have something to help her? [phone]
[2021-08-24] MEDS ORDERED: LORazepam 2 mg/ml vial ONE (17:01)
[2021-08-24] MEDS: LORazepam 2 mg/ml vial IV PRN ×2 (17:07→23:12)
[2021-08-24 18:00] VITALS: BP 121/93
[2021-08-24] MEDS: duloxetine 30mg CAPSULE.DR PO SCH (20:33)
[2021-08-24] MEDS: enoxaparin 60mg/0.6ml syringe SUBCUT SCH (20:33)
[2021-08-24 22:00] VITALS: BP 126/70
[2021-08-25] VITALS (8 sets, daily range): BP systolic 91–139; BP diastolic 46–81
[2021-08-25] MEDS: ALBUTEROL INHALER 1 PUFF/90 MCG INHALER IH SCH ×4 (04:10→20:42)
[2021-08-25] MEDS: Ethinyl Estradiol/Drospirenone (Loryna 3 mg-0.02 mg Tablet) PO SCH (08:00)
[2021-08-25] MEDS: REMDESIVIR INJ 100 MG in normal saline 100ml IV soln 100 ML IV SCH ×2 (08:00→08:49)
[2021-08-25 08:28] LABS: BASOPHILS % (AUTO) 0.2 % (0-1); EOSINOPHILS % (AUTO) 0 % (0-6); HEMATOCRIT 35.9 % (35.0-45.0); HEMOGLOBIN 11.9 g/dl (12.0-16.0); LYMPHOCYTES % (AUTO) 10.3 % (21-51); MEAN CORPUSCULAR HEMOGLOBIN 26.6 PG (27.0-31.0); MEAN CORPUSCULAR HGB CONC 33.2 g/dL (33.0-36.5); MEAN CORPUSCULAR VOLUME 80.1 FL (78-98); MEAN PLATELET VOLUME 7.7 FL (7.4-10.4); MONOCYTES # (AUTO) 0.9 X10'3 (0-0.9); MONOCYTES % (AUTO) 9.3 % (2-12); NEUTROPHILS % (AUTO) 80.2 % (42-75); PLATELET COUNT 568 X10'3 (140-440); RED BLOOD COUNT 4.48 X10'6 (4.20-5.60); RED CELL DISTRIBUTION WIDTH 14.2 % (11.5-14.5)
[2021-08-25] MEDS: dexamethasone inj 6 MG in dextrose 5%-water 100 ML IV SCH ×2 (08:48→20:43)
[2021-08-25] MEDS: docusate sod 100mg capsule PO SCH ×2 (08:49→20:43)
[2021-08-25] MEDS: pantoprazole 40mg Tablet.DR PO SCH ×2 (08:49→20:49)
[2021-08-25] MEDS: enoxaparin 60mg/0.6ml syringe SUBCUT SCH ×2 (08:49→20:49)
[2021-08-25] MEDS: lactobacillus rhamnosus 10,000 MMU CELLS/CAPSULE PO SCH ×2 (08:49→20:43)
[2021-08-25] MEDS: aspirin 81mg tab.chew PO SCH (08:49)
[2021-08-25] MEDS: CefTRIAXone 2gm/D5W 50ml BAG 50 ML IV SCH (08:49)
[2021-08-25] MEDS: insulin Lispro (HumaLOG) vial - multi-dose SQ SCH ×3 (09:35→20:47)
[2021-08-25] MEDS: LORazepam 2 mg/ml vial IV PRN ×2 (09:35→22:24)
[2021-08-25 09:36] LABS: ALBUMIN 2.2 G/DL (3.4-5.0); ALBUMIN/GLOBULIN RATIO 0.5 (1.1-1.5); ALKALINE PHOSPHATASE 73 IU/L (46-116); ANION GAP 9 (8-16); ASPARTATE AMINO TRANSFERASE 39 U/L (10-37); BILIRUBIN,TOTAL 0.3 MG/DL (0.1-1.0); BLOOD UREA NITROGEN 13 MG/DL (7-18); BUN/CREATININE RATIO 14.8 (6.6-38.0); C-REACTIVE PROTEIN 3.35 MG/DL (0.0-0.5); CALCIUM 8.4 MG/DL (8.5-10.1); CHLORIDE 106 MMOL/L (99-107); CREATININE 0.88 MG/DL (0.40-0.90); GLUCOSE 223 MG/DL (70-104); LACTATE DEHYDROGENASE 677 U/L (81-234); SODIUM 142 MMOL/L (135-145); TOTAL CARBON DIOXIDE 26.6 MMOL/L (24-32); TOTAL PROTEIN 6.4 G/DL (6.4-8.2); eGFR 70 ML/MIN
[2021-08-25 10:41] LABS: ALANINE AMINOTRANSFERASE 36 U/L (12-78)
[2021-08-25 11:05] LABS: D-DIMER 2.78 MG/L FEU (0-0.50)
[2021-08-25] MEDS ORDERED: benzonatate 100mg capsule PO PRN (16:25)
[2021-08-25] MEDS ORDERED: guaiFENesin 100mg/DM 10mg oral syrup 5 ML CUP PO PRN (16:25)
[2021-08-25] MEDS: duloxetine 30mg CAPSULE.DR PO SCH (20:43)
[2021-08-25] MEDS: HYDROcodone/acetaminophen 10/325mg tab PO PRN (20:44)
[2021-08-26 01:56] VITALS: BP 105/60
[2021-08-26] MEDS: ALBUTEROL INHALER 1 PUFF/90 MCG INHALER IH SCH ×4 (04:48→20:23)
[2021-08-26 06:00] VITALS: BP 138/85
--- NOTE | 2021-08-26 06:36 | NUR ---
report given to Francis OLSON, all questions answered
--- NOTE | 2021-08-26 06:44 | NUR ---
patient was in bed sleep when RN came to her for medication administration, Pnemonia Vaccine offered, patient wanted to wait so she could get back to sleep after pills and IV push medication, RN Francis notified patient hasn't received Pneumonia vaccine
[2021-08-26] MEDS: Ethinyl Estradiol/Drospirenone (Loryna 3 mg-0.02 mg Tablet) PO SCH (08:00)
[2021-08-26] MEDS: docusate sod 100mg capsule PO SCH ×2 (08:00→20:00)
[2021-08-26 08:40] LABS: BASOPHILS % (AUTO) 0.1 % (0-1); EOSINOPHILS % (AUTO) 0 % (0-6); HEMATOCRIT 32.4 % (35.0-45.0); LYMPHOCYTES % (AUTO) 19.8 % (21-51); MEAN CORPUSCULAR HEMOGLOBIN 26.8 PG (27.0-31.0); MEAN CORPUSCULAR HGB CONC 33.9 g/dL (33.0-36.5); MEAN CORPUSCULAR VOLUME 79.1 FL (78-98); MEAN PLATELET VOLUME 7.8 FL (7.4-10.4); MONOCYTES # (AUTO) 0.8 X10'3 (0-0.9); NEUTROPHILS # (AUTO) 7.2 X10'3 (1.8-7.7); NEUTROPHILS % (AUTO) 72.1 % (42-75); PLATELET COUNT 586 X10'3 (140-440); RED CELL DISTRIBUTION WIDTH 14.1 % (11.5-14.5)
[2021-08-26] MEDS: lactobacillus rhamnosus 10,000 MMU CELLS/CAPSULE PO SCH ×2 (08:40→19:49)
[2021-08-26] MEDS: enoxaparin 60mg/0.6ml syringe SUBCUT SCH ×2 (08:40→19:48)
[2021-08-26] MEDS: aspirin 81mg tab.chew PO SCH (08:40)
[2021-08-26] MEDS: pantoprazole 40mg Tablet.DR PO SCH ×2 (08:40→19:49)
[2021-08-26] MEDS: dexamethasone inj 6 MG in dextrose 5%-water 100 ML IV SCH ×2 (08:41→21:33)
[2021-08-26] MEDS: REMDESIVIR INJ 100 MG in normal saline 100ml IV soln 100 ML IV SCH (08:41)
[2021-08-26] MEDS: CefTRIAXone 2gm/D5W 50ml BAG 50 ML IV SCH (08:41)
[2021-08-26 08:54] LABS: ALANINE AMINOTRANSFERASE 32 U/L (12-78); ALBUMIN 2.2 G/DL (3.4-5.0); ALBUMIN/GLOBULIN RATIO 0.6 (1.1-1.5); ALKALINE PHOSPHATASE 88 IU/L (46-116); ANION GAP 11 (8-16); ASPARTATE AMINO TRANSFERASE 44 U/L (10-37); BILIRUBIN,TOTAL 0.3 MG/DL (0.1-1.0); BLOOD UREA NITROGEN 14 MG/DL (7-18); BUN/CREATININE RATIO 19.2 (6.6-38.0); C-REACTIVE PROTEIN 1.72 MG/DL (0.0-0.5); CALCIUM 7.8 MG/DL (8.5-10.1); CHLORIDE 106 MMOL/L (99-107); CREATININE 0.73 MG/DL (0.40-0.90); GLUCOSE 165 MG/DL (70-104); LACTATE DEHYDROGENASE 603 U/L (81-234); POTASSIUM 3.5 MMOL/L (3.5-5.1); SODIUM 142 MMOL/L (135-145); TOTAL CARBON DIOXIDE 25.5 MMOL/L (24-32); eGFR 87 ML/MIN
[2021-08-26 09:01] LABS: D-DIMER 1.71 MG/L FEU (0-0.50)
[2021-08-26 10:00] VITALS: BP 131/74
[2021-08-26] MEDS: insulin Lispro (HumaLOG) vial - multi-dose SQ SCH ×3 (10:02→19:06)
[2021-08-26 14:00] VITALS: BP 102/81
[2021-08-26 18:00] VITALS: BP 118/75
[2021-08-26] MEDS: LORazepam 2 mg/ml vial IV PRN (19:49)
[2021-08-26] MEDS: duloxetine 30mg CAPSULE.DR PO SCH (19:49)
[2021-08-26 21:26] LABS: ABG BASE EXCESS 2.2 mmol/L (-2.0-2.0); ABG HCO3 24.7 mmol/L (22.0-26.0); ABG OXYGEN SATURATION 96.3 % (94-97); ABG PCO2 (T) 31.6 mmHg (32.0-45.0); ABG PO2 (T) 80.7 mmHg (75.0-100.0); ALLEN'S TEST POSITIVE; FCOHb 0.3 % (0.0-3.9); FMetHb 0.3 % (0.0-1.5); FO2Hb 95.7 % (94-97); PATIENT TEMPERATURE 36.9
[2021-08-26 22:00] VITALS: BP 94/49
[2021-08-27 02:12] VITALS: BP 147/85
[2021-08-27] MEDS: ALBUTEROL INHALER 1 PUFF/90 MCG INHALER IH SCH ×4 (02:27→20:23)
[2021-08-27] MEDS: HYDROcodone/acetaminophen 10/325mg tab PO PRN ×4 (02:57→19:15)
[2021-08-27 06:00] VITALS: BP 138/78
[2021-08-27] MEDS: docusate sod 100mg capsule PO SCH ×2 (08:00→19:18)
[2021-08-27] MEDS: CefTRIAXone 2gm/D5W 50ml BAG 50 ML IV SCH (08:01)
[2021-08-27] MEDS: dexamethasone inj 6 MG in dextrose 5%-water 100 ML IV SCH (08:01)
[2021-08-27] MEDS: lactobacillus rhamnosus 10,000 MMU CELLS/CAPSULE PO SCH ×2 (08:03→19:15)
[2021-08-27] MEDS: enoxaparin 60mg/0.6ml syringe SUBCUT SCH ×2 (08:03→19:14)
[2021-08-27] MEDS: aspirin 81mg tab.chew PO SCH (08:03)
[2021-08-27] MEDS: pantoprazole 40mg Tablet.DR PO SCH ×2 (08:03→19:17)
[2021-08-27] MEDS: insulin Lispro (HumaLOG) vial - multi-dose SQ SCH ×3 (09:20→19:12)
[2021-08-27 10:28] LABS: EOSINOPHILS % (AUTO) 0.1 % (0-6); LYMPHOCYTES # (AUTO) 1.6 X10'3 (1.1-4.8); MONOCYTES # (AUTO) 0.8 X10'3 (0-0.9)
[2021-08-27 10:30] LABS: BASOPHILS % (AUTO) 0.3 % (0-1); HEMATOCRIT 32.9 % (35.0-45.0); LYMPHOCYTES % (AUTO) 17.5 % (21-51); MEAN CORPUSCULAR HEMOGLOBIN 26.6 PG (27.0-31.0); MEAN CORPUSCULAR HGB CONC 33.4 g/dL (33.0-36.5); MEAN CORPUSCULAR VOLUME 79.6 FL (78-98); MEAN PLATELET VOLUME 7.5 FL (7.4-10.4); MONOCYTES % (AUTO) 8.7 % (2-12); NEUTROPHILS # (AUTO) 6.8 X10'3 (1.8-7.7); NEUTROPHILS % (AUTO) 73.4 % (42-75); PLATELET COUNT 624 X10'3 (140-440); RED BLOOD COUNT 4.13 X10'6 (4.20-5.60); RED CELL DISTRIBUTION WIDTH 14.3 % (11.5-14.5); WHITE BLOOD COUNT 9.3 X10'3 (4.5-11.0)
[2021-08-27 10:41] LABS: D-DIMER 1.24 MG/L FEU (0-0.50)
[2021-08-27 10:56] LABS: MICROCYTOSIS 1+; PLATELET ESTIMATE INCREASED; TOTAL CELLS COUNTED 100
[2021-08-27 10:57] LABS: ALANINE AMINOTRANSFERASE 29 U/L (12-78); ALBUMIN 2.2 G/DL (3.4-5.0); ALBUMIN/GLOBULIN RATIO 0.6 (1.1-1.5); ALKALINE PHOSPHATASE 55 IU/L (46-116); ANION GAP 12 (8-16); ASPARTATE AMINO TRANSFERASE 34 U/L (10-37); BILIRUBIN,TOTAL 0.2 MG/DL (0.1-1.0); BLOOD UREA NITROGEN 13 MG/DL (7-18); BUN/CREATININE RATIO 16.9 (6.6-38.0); C-REACTIVE PROTEIN 1.19 MG/DL (0.0-0.5); CALCIUM 7.7 MG/DL (8.5-10.1); CHLORIDE 103 MMOL/L (99-107); CREATININE 0.77 MG/DL (0.40-0.90); GLUCOSE 197 MG/DL (70-104); LACTATE DEHYDROGENASE 482 U/L (81-234); POTASSIUM 3.3 MMOL/L (3.5-5.1); SODIUM 139 MMOL/L (135-145); TOTAL CARBON DIOXIDE 24.3 MMOL/L (24-32); TOTAL PROTEIN 6.1 G/DL (6.4-8.2); eGFR 82 ML/MIN
[2021-08-27 11:00] VITALS: BP 116/73
[2021-08-27] MEDS ORDERED: potassium Cl 20 mEq SR tablet PO PRN (11:30)
[2021-08-27] MEDS ORDERED: potassium CL 10mEq/100ml bag 100 ML IV PRN (11:30)
[2021-08-27] MEDS ORDERED: magnesium Cl slow-release 64mg tablet PO PRN (11:30)
[2021-08-27] MEDS ORDERED: magnesium 4gm in 100ml NS 100 ML IV PRN (11:30)
[2021-08-27] MEDS: potassium Cl 20 mEq SR tablet PO PRN ×2 (11:51→16:34)
[2021-08-27] MEDS: Ethinyl Estradiol/Drospirenone (Loryna 3 mg-0.02 mg Tablet) PO SCH (11:51)
--- NOTE | 2021-08-27 14:46 | NUR ---
Reassessment: Per EMR pt mostly consumes ~75% of starch and milk and 0% PO intake of protein, though unsure if this is accurate documentation as pt documented with 75% PO intake of starch and protein with 0% PO intake of milk at lunch today with a different bedside RN. If pt truly not consuming protein on meal trays pt would benefit from ONS to assist with meeting estimated nutrient needs. [facility] 08/26. Will continue to follow closely and make recommendations as appropriate pending further trends in PO intake. Recommendations: 1. Continue CHO controlled diet 2. Monitor need for ONS pending further PO trends 3. Bowel care PRN 4. Scaled wt this admit; subsequent weekly wts 5. Consider basal Glu coverage per physician discretion; Glu 234-238 on steroid with only Humalog for coverage 6. DM ed once pt made aware of new DM DX by physician; A1C 8.0% and no PMH DM Addendum: 08/27/21 at [address] Amended: Links added.
--- NOTE | 2021-08-27 16:00 | NUR ---
no 1500 vital signs documented, but patient needs were attended and made comfortable.
[2021-08-27 18:00] VITALS: BP 114/81
--- NOTE | 2021-08-27 18:33 | NUR ---
Problems reprioritized. Patient report given, questions answered & plan of care reviewed with Vero RN.
[2021-08-27] MEDS: dexamethasone 4mg/ml inj IV SCH (19:14)
[2021-08-27] MEDS: duloxetine 30mg CAPSULE.DR PO SCH (19:17)
[2021-08-27] MEDS ORDERED: dexamethasone inj 4 MG in dextrose 5%-water 100 ML IV SCH (20:00)
[2021-08-27 22:00] VITALS: BP 109/67
[2021-08-28] MEDS: HYDROcodone/acetaminophen 10/325mg tab PO PRN ×2 (01:25→08:31)
--- NOTE | 2021-08-28 01:31 | NUR ---
Went in to give patient pain medicine as requested and she c/o that she was now bleeding because she never got her control resumed after she gave it to nursing at beginning of her stay. I educated her on reasoning why the medicine might not be resumed since it can cause blood clots ,but did say I would ask the Md if he would resume it. She told me not to bother about it, since she is leaving tomorrow. I gave her underwear,pads and new gown to change into. I also informed the pt's nurse of situation so she can speak to the patient and so that we need to make sure Md verifies if they want he to take medicine on discharge or not.
[2021-08-28 02:00] VITALS: BP 101/61
[2021-08-28] MEDS: ALBUTEROL INHALER 1 PUFF/90 MCG INHALER IH SCH ×2 (02:12→07:27)
[2021-08-28 06:00] VITALS: BP 111/69
--- NOTE | 2021-08-28 06:46 | NUR ---
Patient in room [facility]THO 4014A. I have received report from WHITNEY Pham and had the opportunity to ask questions and assume patient care.
[2021-08-28] MEDS: docusate sod 100mg capsule PO SCH (08:00)
[2021-08-28] MEDS: CefTRIAXone 2gm/D5W 50ml BAG 50 ML IV SCH (08:29)
[2021-08-28] MEDS: Ethinyl Estradiol/Drospirenone (Loryna 3 mg-0.02 mg Tablet) PO SCH (08:30)
[2021-08-28] MEDS: enoxaparin 60mg/0.6ml syringe SUBCUT SCH (08:30)
[2021-08-28] MEDS: dexamethasone 4mg/ml inj IV SCH (08:30)
[2021-08-28] MEDS: aspirin 81mg tab.chew PO SCH (08:31)
[2021-08-28] MEDS: pantoprazole 40mg Tablet.DR PO SCH (08:31)
[2021-08-28] MEDS: lactobacillus rhamnosus 10,000 MMU CELLS/CAPSULE PO SCH (08:31)
[2021-08-28] MEDS: insulin Lispro (HumaLOG) vial - multi-dose SQ SCH ×2 (09:52→14:13)
[2021-08-28 10:00] VITALS: BP 102/61
[2021-08-28 10:46] LABS: BASOPHILS % (AUTO) 0.4 % (0-1); EOSINOPHILS % (AUTO) 0.1 % (0-6); HEMATOCRIT 35.3 % (35.0-45.0); HEMOGLOBIN 11.9 g/dl (12.0-16.0); LYMPHOCYTES # (AUTO) 1.4 X10'3 (1.1-4.8); LYMPHOCYTES % (AUTO) 12.9 % (21-51); MEAN CORPUSCULAR HEMOGLOBIN 26.7 PG (27.0-31.0); MEAN CORPUSCULAR HGB CONC 33.6 g/dL (33.0-36.5); MEAN CORPUSCULAR VOLUME 79.4 FL (78-98); MEAN PLATELET VOLUME 7.2 FL (7.4-10.4); MONOCYTES # (AUTO) 0.8 X10'3 (0-0.9); MONOCYTES % (AUTO) 7.3 % (2-12); NEUTROPHILS # (AUTO) 8.4 X10'3 (1.8-7.7); NEUTROPHILS % (AUTO) 79.3 % (42-75); PLATELET COUNT 658 X10'3 (140-440); RED BLOOD COUNT 4.44 X10'6 (4.20-5.60); RED CELL DISTRIBUTION WIDTH 14.4 % (11.5-14.5); WHITE BLOOD COUNT 10.6 X10'3 (4.5-11.0)
[2021-08-28 11:00] LABS: D-DIMER 0.82 MG/L FEU (0-0.50)
[2021-08-28 11:03] LABS: ALANINE AMINOTRANSFERASE 27 U/L (12-78); ALBUMIN 2.5 G/DL (3.4-5.0); ALBUMIN/GLOBULIN RATIO 0.7 (1.1-1.5); ALKALINE PHOSPHATASE 58 IU/L (46-116); ANION GAP 8 (8-16); ASPARTATE AMINO TRANSFERASE 32 U/L (10-37); BILIRUBIN,TOTAL 0.3 MG/DL (0.1-1.0); BLOOD UREA NITROGEN 15 MG/DL (7-18); BUN/CREATININE RATIO 19.2 (6.6-38.0); C-REACTIVE PROTEIN 0.57 MG/DL (0.0-0.5); CALCIUM 8.2 MG/DL (8.5-10.1); CHLORIDE 102 MMOL/L (99-107); CREATININE 0.78 MG/DL (0.40-0.90); GLUCOSE 201 MG/DL (70-104); LACTATE DEHYDROGENASE 458 U/L (81-234); POTASSIUM 3.9 MMOL/L (3.5-5.1); SODIUM 136 MMOL/L (135-145); TOTAL CARBON DIOXIDE 26.5 MMOL/L (24-32); TOTAL PROTEIN 6.3 G/DL (6.4-8.2); eGFR 81 ML/MIN
[2021-08-28 12:00] LABS: PLATELET ESTIMATE INCREASED; TOTAL CELLS COUNTED 100
[2021-08-28 12:02] LABS: HYPOCHROMASIA 1+; MICROCYTOSIS 1+; POLYCHROMASIA 1+
[2021-08-28] MEDS ORDERED: PRED20TA PO (13:41)
[2021-08-28] MEDS ORDERED: ALBU6.7H9 IH (13:41)
--- NOTE | 2021-08-28 14:50 | NUR ---
d/c instructions given, questions answered. belongings gathered by pt and sent with pt. iv d/c'd, cannula intact, no complications. d/c'd pt in stable condition to home in private vehicle accompanied by friend. pt left floor at 1440.
== END 2021-08-28 14:40 | disposition home or self-care (01) | DRG 177 ==
LOC: ER 17:22 → ED HOLD 23:42 → UNDOADMIN 23:42 → EDBEDREQ 23:57 → ORTHO 4S 08-23 19:16
PROVIDERS: ADMIT Family Medicine; ATTEND Family Medicine
PROC: XW033E5 Introduction of Remdesivir Anti-infective into Peripheral Vein, Percutaneous Approach, New Technology Group 5 (ICD-10-PCS; principal; 2021-08-22)
PROC: B32T1ZZ Computerized Tomography (CT Scan) of Left Pulmonary Artery using Low Osmolar Contrast (ICD-10-PCS; 2021-08-22)
PROC: B3201ZZ Computerized Tomography (CT Scan) of Thoracic Aorta using Low Osmolar Contrast (ICD-10-PCS; 2021-08-22)
PROC: B32S1ZZ Computerized Tomography (CT Scan) of Right Pulmonary Artery using Low Osmolar Contrast (ICD-10-PCS; 2021-08-22)
PROC: B4201ZZ Computerized Tomography (CT Scan) of Abdominal Aorta using Low Osmolar Contrast (ICD-10-PCS; 2021-08-22)
PROC: B4241ZZ Computerized Tomography (CT Scan) of Superior Mesenteric Artery using Low Osmolar Contrast (ICD-10-PCS; 2021-08-22)
PROC: B4281ZZ Computerized Tomography (CT Scan) of Bilateral Renal Arteries using Low Osmolar Contrast (ICD-10-PCS; 2021-08-22)
PROC: B42C1ZZ Computerized Tomography (CT Scan) of Pelvic Arteries using Low Osmolar Contrast (ICD-10-PCS; 2021-08-22)
PROC: B42H1ZZ Computerized Tomography (CT Scan) of Bilateral Lower Extremity Arteries using Low Osmolar Contrast (ICD-10-PCS; 2021-08-22)
PROC: B4211ZZ Computerized Tomography (CT Scan) of Celiac Artery using Low Osmolar Contrast (ICD-10-PCS; 2021-08-22)
PROC: 5A0945A Assistance with Respiratory Ventilation, 24-96 Consecutive Hours, High Flow/Velocity Cannula (ICD-10-PCS; 2021-08-23)
PROC: XW033H5 Introduction of Tocilizumab into Peripheral Vein, Percutaneous Approach, New Technology Group 5 (ICD-10-PCS; 2021-08-24)
PROC: 5A0935A Assistance with Respiratory Ventilation, Less than 24 Consecutive Hours, High Flow/Velocity Cannula (ICD-10-PCS; 2021-08-26)
PROC: 5A0935A Assistance with Respiratory Ventilation, Less than 24 Consecutive Hours, High Flow/Velocity Cannula (ICD-10-PCS; 2021-08-27)
DX: U07.1 COVID-19 (principal); I21.A1 Myocardial infarction type 2; J12.82 Pneumonia due to coronavirus disease 2019; J96.01 Acute respiratory failure with hypoxia; Z68.41 Body mass index [BMI] 40.0-44.9, adult; E11.9 Type 2 diabetes mellitus without complications; E66.01 Morbid (severe) obesity due to excess calories; K44.9 Diaphragmatic hernia without obstruction or gangrene; K76.0 Fatty (change of) liver, not elsewhere classified; M79.7 Fibromyalgia; R32 Unspecified urinary incontinence; F32.A Depression, unspecified; R15.9 Full incontinence of feces; R79.82 Elevated C-reactive protein (CRP); Z90.49 Acquired absence of other specified parts of digestive tract; Z79.899 Other long term (current) drug therapy
CPT/HCPCS: 36415; 36600; 71045; 71275; 74177; 80053; 80061; 82803; 82948; 83036; 83615; 83735; 83880; 84100; 84145; 84484; 85007; 85018; 85025; 85379; 85610; 85651; 85730; 86140; 87081; 93005; 93306; 94640; 94760; 96374; 96375; 99285; G0378; J0456; J0696; J1100; J1650; J1815; J2060; J2270; J2405; J3262; J3490; J7030; J7060; Q9967

== ENCOUNTER 2025-03-28 21:08 | Emergency (ER) | payer BC, MEDICAID, OTHER ==
[~2025-03-28] VITALS: Ht 165.1 cm; Wt 72.5 kg
[~2025-03-28 21:08] MED LIST changes: -ACIDOPHILUS100 MG PO; +ALBU6.7H14 IH; -DIPH-423 PO; +DULO-31 PO; -ESOM20CA PO; +ETHI1TAB18 PO; +HYDR-3972 PO; -IBUP-1985 PO; +PANT20TA18 PO; -POLOS EACHEYE; -TRIA15CR61 TP; -VENL150C2 PO
[2025-03-28 21:21] VITALS: BP 156/90; PULSE 104; RESP 15; TEMP 97.6; O2SAT 98
== END 2025-03-28 22:03 | disposition left against medical advice (07) ==
LOC: ER 21:09
DX: R10.9 Unspecified abdominal pain (principal); Z53.21 Procedure and treatment not carried out due to patient leaving prior to being seen by health care provider